=== PATIENT | female | born 2005 | race Hispanic/Latino ===

== ENCOUNTER 2024-08-09 13:18 | Day surgery (SDC) | payer OTHER ==
[2024-08-09] MEDS ORDERED: hydrALAZINE 20 MG/ML VIAL SLOW IVP PRN (14:30)
[2024-08-11 10:59] LABS: Group B Streptococcus by PCR Not Detected (NotDetected)
== END 2024-08-09 16:40 | disposition home or self-care (01) ==
LOC: CSHLD/OP 13:18
PROVIDERS: ATTEND Family Medicine
DX: O47.03 False labor before 37 completed weeks of gestation, third trimester (principal); O99.013 Anemia complicating pregnancy, third trimester; D50.9 Iron deficiency anemia, unspecified; Z3A.36 36 weeks gestation of pregnancy; Z79.899 Other long term (current) drug therapy
CPT/HCPCS: 87653

== ENCOUNTER 2024-08-13 20:04 | Inpatient (IN) | payer MEDICAID, OTHER, SELFPAY ==
[2024-08-13 20:16] VITALS: BMI 34.0
[2024-08-13 20:35] LABS: Fetal Membranes Rupture RUPTURE DETECTED (No Rupture)
[2024-08-13] MEDS ORDERED: hydrALAZINE 20 MG/ML VIAL SLOW IVP PRN ×2 (20:42→20:44)
[2024-08-13] MEDS ORDERED: Acetaminophen 500 MG TAB PO PRN (20:44)
[2024-08-13] MEDS ORDERED: Methylergonovine 0.2 MG/ML VIAL IM PRN (20:44)
[2024-08-13] MEDS ORDERED: Lidocaine 1% (PF) 30 ML VIAL SC PRN (20:44)
[2024-08-13] MEDS ORDERED: Promethazine HCl 25 MG/ML VIAL IM PRN ×2 (20:44→22:21)
[2024-08-13] MEDS ORDERED: Carboprost 250 MCG/ML AMP IM PRN (20:44)
[2024-08-13] MEDS ORDERED: Diphenoxylate HCl/Atropine Tablet PO PRN (20:44)
[2024-08-13] MEDS ORDERED: Oxytocin 30 units/NS 500 ML 500 ML IV SCH (20:45)
[2024-08-13] MEDS ORDERED: Misoprostol 100 MCG TAB VAG SCH (20:45)
[2024-08-13 21:36] LABS: Hematocrit 37.2 % (34.9-44.5); Hemoglobin 12.3 g/dL (12.0-15.5); Mean Corpuscular HGB CONC 33.1 g/dL (32.0-36.0); Mean Corpuscular Hemoglobin 27.3 pg (27.0-33.0); Mean Corpuscular Volume 82.5 fL (81.6-98.3); Mean Platelet Volume 11.5 fL (7.4-10.4); Platelet Count 274 10x3/uL (150-450); RBC Distribution Width 15.7 % (11.5-14.5); Red Blood Cell (RBC) Count 4.51 10x6/uL (3.90-5.03); White Blood Cell (WBC) Count 10.6 10x3/uL (3.5-10.5)
[2024-08-13] MEDS: fentaNYL/Ropivacaine Epidural 100 ML ONE (21:55)
[2024-08-13] MEDS: Lactated Ringer's 1,000 ML IV SCH (22:20)
[2024-08-13] MEDS ORDERED: ePHEDrine Sulfate 50 MG/10 ML VIAL SLOW IVP PRN (22:21)
[2024-08-13] MEDS ORDERED: Moisturizing Cream (Eucerin) 113 GM JAR TOP PRN (22:21)
[2024-08-13] MEDS ORDERED: Lactated Ringer's 500 ML IV PRN (22:21)
[2024-08-13] MEDS ORDERED: Naloxone HCl 0.4 mg/ml Vial IVP PRN ×2 (22:21)
[2024-08-13] MEDS ORDERED: diphenhydrAMINE 50 MG/ML VIAL IVP PRN (22:21)
[2024-08-13 22:38] LABS: HBsAg Index 0.22 S/CO (0-0.99); Hep B Surf Ag - L&D Non-Reactive S/CO (NonReactive)
[2024-08-13 22:41] LABS: Syphilis Antibody Nonreactive (Nonreactive); Syphilis Antibody Index 0.03 S/CO (<1.00 Non-Reactive)
[2024-08-13] MEDS: Oxytocin 30 units/NS 500 ML 500 ML IV SCH (22:54)
[2024-08-14] MEDS: fentaNYL 2 mcg/Ropivacaine 0.2% Epidural 100 ML CADD EPIDURAL SCH (09:52)
[2024-08-14] MEDS: Ondansetron PF 4 MG/2 ML Vial IVP PRN ×2 (11:15→17:44)
[2024-08-14] MEDS ORDERED: Bupivacaine/Epinephrine 0.25% 30 ML VIAL ONE (14:00)
[2024-08-14] MEDS: Tranexamic Acid 1,000 MG/10 ML VIAL IVP PRN (14:23)
[2024-08-14] MEDS: Misoprostol 200 MCG TAB PR PRN (14:55)
[2024-08-14] MEDS: Oxytocin 30 units/NS 500 ML 500 ML IV SCH (14:55)
[2024-08-14] MEDS ORDERED: HYDROcodone/Acetaminophen 5/325 mg Tablet PO PRN (15:06)
[2024-08-14] MEDS ORDERED: Misoprostol 200 MCG TAB VAG PRN (15:06)
[2024-08-14] MEDS ORDERED: Methylergonovine 0.2 MG/ML VIAL IM PRN (15:06)
[2024-08-14] MEDS ORDERED: Milk Of Magnesia 30 ML UDCUP PO PRN (15:06)
[2024-08-14] MEDS ORDERED: Bisacodyl 10 MG SUPP PR PRN (15:06)
[2024-08-14] MEDS ORDERED: hydrALAZINE 20 MG/ML VIAL SLOW IVP PRN (15:06)
[2024-08-14] MEDS ORDERED: Tranexamic Acid 1,000 MG/10 ML VIAL IVP SCH (15:15)
[2024-08-14] MEDS ORDERED: Oxytocin 30 units/NS 500 ML 500 ML IV SCH (15:15)
[2024-08-14] MEDS: Ibuprofen 800 MG TAB PO PRN (17:31)
[2024-08-14] MEDS: Piperacillin/Tazobactam 3.375 GM in Sodium Chloride 0.9% 100 ML IVPB SCH (17:32)
[2024-08-14] MEDS: Ibuprofen 800 MG TAB PO SCH (17:57)
[2024-08-14] MEDS: Ferrous Sulfate 325 MG TAB PO SCH (17:58)
[2024-08-14] MEDS: Oxytocin 30 units/NS 500 ML 500 ML ONE (21:02)
[2024-08-14] MEDS: Tranexamic Acid 1,000 MG/10 ML VIAL ONE (21:02)
[2024-08-14] MEDS: Carboprost 250 MCG/ML AMP ONE (21:02)
[2024-08-14] MEDS: Misoprostol 200 MCG TAB ONE (21:02)
[2024-08-14] MEDS: Docusate 100 MG CAP PO SCH (21:36)
[2024-08-14] MEDS: Acetaminophen 325 MG TAB PO PRN (23:20)
[2024-08-15] MEDS: Preparation H Ointment 28 GM TUBE TOP PRN (02:04)
[2024-08-15] MEDS: Boostrix 0.5 ML (Tdap) VIAL (>/=7 yrs of age) IM ONE (07:11)
[2024-08-15] MEDS: Measles/Mumps/Rubella 10 MCG/0.5 ML VIAL SC ONE (07:14)
[2024-08-15] MEDS ORDERED: Witch Hazel 100 PAD JAR TOP PRN (07:44)
[2024-08-15] MEDS ORDERED: Polyethylene Glycol 3350 17 GM Packet PO PRN (07:47)
[2024-08-15] MEDS: Prenatal Vitamin 1 TAB PO SCH (08:50)
[2024-08-15] MEDS: Polyethylene Glycol 3350 17 GM Packet PO SCH (08:50)
[2024-08-16] MEDS ORDERED: Measles/Mumps/Rubella 10 MCG/0.5 ML VIAL SC ONE (05:53)
[2024-08-16 07:10] VITALS: BP 106/55; TEMP 97.9
== END 2024-08-16 13:20 | disposition home or self-care (01) | DRG 768 ==
LOC: CSHLD/OP 20:04 → CSHLD 20:46 → CSHPP 08-14 20:26
PROVIDERS: ADMIT Family Medicine; ATTEND Family Medicine
PROC: 10E0XZZ Delivery of Products of Conception, External Approach (ICD-10-PCS; principal; 2024-08-14)
PROC: 0UQC7ZZ Repair Cervix, Via Natural or Artificial Opening (ICD-10-PCS; 2024-08-14)
PROC: 0KQM0ZZ Repair Perineum Muscle, Open Approach (ICD-10-PCS; 2024-08-14)
DX: O99.02 Anemia complicating childbirth (principal); Z37.0 Single live birth; O71.3 Obstetric laceration of cervix; D50.9 Iron deficiency anemia, unspecified; Z3A.36 36 weeks gestation of pregnancy; O76 Abnormality in fetal heart rate and rhythm complicating labor and delivery; O70.1 Second degree perineal laceration during delivery; O66.0 Obstructed labor due to shoulder dystocia; O42.913 Preterm premature rupture of membranes, unspecified as to length of time between rupture and onset of labor, third trimester
CPT/HCPCS: 36415; 51702; 84112; 86780; 86850; 86900; 86901; 87340; J2405; J2543; J2590; J7120